=== PATIENT | female | born 1995 ===

== ENCOUNTER 2024-06-02 18:33 | Inpatient (IN) ==
[2024-06-02] MEDS ORDERED: LIDOCAINE 1% LOCAL 20 ML VIAL INFIL PRN (18:54)
--- NOTE | 2024-06-02 18:56 | History & Physical Report ---
Date of Service June 02, 2024 Assessment & Plan (1) Supervision of normal first : Plan: Admit to L&D. EFM/toco. Labs. OK for epidural if she desires. History of Present Illness Chief Complaint: labor Primary Care Provider: JHONNY Fontenot 28yo @ 39 2/, contractions all day. No leaking. No vaginal bleeding. + movement. Allergies Allergy/AdvReac Type Severity Reaction Status Date / Time No Known Allergies Allergy Verified 06/02/24 18:59 Home Medications Medication Instructions Recorded Confirmed Type vits no.124-ferrous fum 1 tab PO DAILY 06/02/24 06/02/24 History 27 mg iron-folic acid 800 mcg tablet ( Vitamin) Patient History Medical History Varicella vaccination No pertinent past medical history Surgical History H/O wisdom tooth extraction Family History Grandfather (Paternal) Myocardial infarction Grandmother (Maternal) Uterine cancer Grandfather (Paternal) Stroke Denies family history of Ovarian cancer Prostate cancer Diabetes Depression Kidney disease Breast cancer Colorectal cancer Cancer Social History (Updated 06/02/24 @ 02:22 by Ivy Rodriguez RN) Smoking Status: Never smoker Second Hand Exposure: No; Do You Dip or Chew Tobacco: No; Hx Alcohol Use: Yes Alcohol type: wine Alcohol Intake Frequency: Monthly or Less Hx Substance Use: No Preferred Language: Omani Communication Ability: Effective Visual Impairment: No Limitations Hearing Ability: Normal Membership Correspondent Required: No Beliefs That Will Affect Care: None marital status: marital status details: Cali Whitt (23) [phone] Current Living Situation: Spouse Current Living Situation Comment: lives with spouse, no pets current occupational status: unemployed current occupation: How many Children do You have: 0 Feels Safe at Home: Yes Childhood Exposure to Second-Hand Smoke: No Diet: regular caffeine: No during the past year weight has: remained stable Dental Care, Regularly: Yes Physical Activity Frequency: 1-2 Times per Week Seatbelt Use: always Sunscreen Use: Yes Assistive Devices: None Review of Systems All systems reviewed & are unremarkable except as noted in HPI & below Physical Exam Physical Exam: FHT Cat 1 [place] Q 2-3 min SVE 7-8/100/-1 Constitutional: WD/WN, vitals as above Respiratory: normal respiratory effort, lungs clear to auscultation no respiratory distress Cardiovascular: Rate/Rhythm: regular rate and regular rhythm Gastrointestinal (Abdomen): Inspection/Auscultation: abdomen normal to inspection Percussion/Palpation: abdomen soft; abdomen nontender Gravid. No s/s chorio or abruption. Skin: no rashes, warm and dry Psychiatric: A+Ox3, euthymic affect Coding Level of Care Code None Diagnoses Supervision of normal first Z34.00
[2024-06-02] MEDS: LACTATED RINGER'S 1,000 ML IV PRN (19:10)
[2024-06-02 19:30] LABS: Hematocrit (blood only) 35.6 % (37.0-47.0); Hemoglobin 11.8 g/dl (12.0-16.0); Mean Corpuscular Hemoglobin 27.4 pg (25.0-34.0); Mean Corpuscular Hgb Conc 33.1 g/dL (32.0-36.0); Mean Corpuscular Volume 82.6 fL (80.0-100.0); Mean Platelet Volume 10.2 fL (9.4-12.4); Platelet Count 387 K/uL (130-400); RDW Coefficient of Variation 13.4 % (11.5-14.5); RDW Standard Deviation 39.9 fL (36.4-46.3); Red Blood Count 4.31 M/uL (4.20-5.40); White Blood Count 18.12 K/ul (4.8-10.8)
[2024-06-02] MEDS ORDERED: ROPIVACAINE 0.5% PF 5 MG/ML 20 ML VIAL EPI PRN (20:39)
[2024-06-02] MEDS ORDERED: fentANYL 2 MCG/ML BUPIVacaine 0.125%-NSS 100ML BAG EPI PRN (20:39)
[2024-06-02] MEDS ORDERED: NALBUPHINE HCL INJ 10 MG/ML AMP IV PRN (20:39)
[2024-06-02] MEDS ORDERED: diphenhydrAMINE 50 MG/ML VIAL IV PRN (20:39)
[2024-06-02] MEDS ORDERED: NALOXONE HCL 1 MG in SODIUM CHLORIDE 0.9% 1,000 ML IV PRN (20:39)
[2024-06-02] MEDS ORDERED: fentaNYL citrate PF 100 MCG/2 ML VIAL EPI PRN (20:39)
[2024-06-02] MEDS ORDERED: SODIUM CHLORIDE 0.9% PF INJ 10 ML VIAL EPI PRN (20:39)
[2024-06-02] MEDS ORDERED: NALOXONE HCL 0.4 MG/1 ML VIAL/CARP IV PRN (20:39)
[2024-06-02] MEDS ORDERED: BUPIVACAINE 0.25% PF 30 ML VIAL EPI PRN (20:39)
[2024-06-02] MEDS ORDERED: ePHEDrine sulfate 50 MG/ML AMP IV PRN (20:39)
--- NOTE | 2024-06-02 20:39 | Anesthesiology Consultation ---
Date of Service June 02, 2024 Assessment & Plan Chart Review Chart Review: Acceptable Risk for Labor Epidural History Height/Weight Height: 5 ft 2 in Weight: 63.503 kg Allergies Allergy/AdvReac Type Severity Reaction Status Date / Time No Known Allergies Allergy Verified 06/02/24 18:59 Medications Home Medications Medication Instructions Recorded Confirmed Last Taken vits no.124-ferrous fum 1 tab PO DAILY 06/02/24 06/02/24 Unknown 27 mg iron-folic acid 800 mcg tablet ( Vitamin) Past Medical History Medical History Varicella vaccination No pertinent past medical history Past Family History Family History Grandfather (Paternal) Myocardial infarction Grandmother (Maternal) Uterine cancer Grandfather (Paternal) Stroke Denies family history of Ovarian cancer Prostate cancer Diabetes Depression Kidney disease Breast cancer Colorectal cancer Cancer Past Surgical History Surgical History H/O wisdom tooth extraction Social History Smoking Status: Never smoker Do You Dip or Chew Tobacco: No Hx Alcohol Use: Yes Alcohol type: wine Hx Substance Use: No Physical Exam Vital Signs Last Vital Signs Temp 36.8 C 06/02/24 19:00 Pulse 108 H 06/02/24 20:35 Resp 18 06/02/24 19:00 BP 134/90 06/02/24 18:55 Pulse Ox 98 06/02/24 20:35 Testing Laboratory Results 06/02/24 19:09
[2024-06-02] MEDS: fentANYL 2 MCG/ML BUPIVacaine 0.125%-NSS 100ML BAG ONE (21:02)
[2024-06-02] MEDS: LIDOCAINE 2% MPF LOCAL 5 ML VIAL EPI PRN (21:04)
[2024-06-02] MEDS: fentaNYL citrate PF 100 MCG/2 ML VIAL ONE (21:07)
[2024-06-02] MEDS: BUPIVACAINE 0.25% PF 30 ML VIAL ONE (21:07)
[2024-06-02] MEDS: ePHEDrine sulfate 50 MG/ML AMP ONE (21:07)
[2024-06-02] MEDS: LIDOCAINE 2%/EPINEPHRINE 1:200,000 20 ML PF ONE (21:08)
[2024-06-02] MEDS: SODIUM CHLORIDE 0.9% PF INJ 10 ML VIAL EPI STA (21:08)
[2024-06-02] MEDS: fentaNYL citrate PF 100 MCG/2 ML VIAL EPI STA (21:08)
[2024-06-02] MEDS: BUPIVACAINE 0.25% PF 30 ML VIAL EPI STA (21:08)
[2024-06-02] MEDS: SODIUM CHLORIDE 0.9% PF INJ 10 ML VIAL ONE (21:08)
[2024-06-02] MEDS: LIDOCAINE 2%/EPINEPHRINE 1:200,000 20 ML PF EPI STA (21:10)
--- NOTE | 2024-06-02 22:09 | Labor Progress Brief Note ---
Date of Service June 02, 2024 Subjective FHT 120s mod celso, +accels, +variable decelerations with immediate return to baseline. Ethel Q 2-4 SVE 0 to +1 station, 100%, anterior lip of cervix remains after trial push Will reposition for recovery, allow to labor down. Assessment & Plan Admission and Anticipated Discharge Date Admission Date: June 02, 2024 Results & Data Vital Signs (Past 12 Hours) Vital Signs Temp Pulse Resp BP Pulse Ox 06/02/24 22:05 119 H 99 06/02/24 22:00 105 H 99 06/02/24 21:57 104 H 126/89 06/02/24 21:55 105 H 99 06/02/24 21:53 109 H 167/83 H 06/02/24 21:50 114 H 99 06/02/24 21:45 107 H 98 06/02/24 21:43 102 H 116/65 06/02/24 21:40 101 H 99 06/02/24 21:35 98 H 98 06/02/24 21:30 105 H 98 06/02/24 21:25 101 H 98 06/02/24 21:23 102 H 120/70 06/02/24 21:20 105 H 122/69 98 06/02/24 21:15 101 H 98 06/02/24 21:14 103 H 127/73 06/02/24 21:10 103 H 97 06/02/24 21:08 106 H 127/74 06/02/24 21:06 103 H 123/75 06/02/24 21:05 36.9 C 115 H 18 97 06/02/24 21:04 107 H 118/66 06/02/24 21:02 105 H 18 129/74 06/02/24 21:00 106 H 06/02/24 21:00 101 H 115/65 96 06/02/24 20:58 106 H 18 123/74 06/02/24 20:56 111 H 125/79 06/02/24 20:55 93 06/02/24 20:55 102 H 06/02/24 20:55 105 H 98 06/02/24 20:50 127 H 98 06/02/24 20:45 128 H 97 06/02/24 20:40 120 H 98 06/02/24 20:35 108 H 98 06/02/24 20:30 111 H 98 06/02/24 20:25 122 H 98 06/02/24 20:24 111 H 91 06/02/24 19:00 36.8 C 18 06/02/24 18:55 106 H 134/90 Coding Level of Care Code None
[2024-06-02] MEDS: OXYTOCIN 30 UNITS/NSS 30 UNITS/500 ML BAG IV PRN (22:40)
--- NOTE | 2024-06-02 23:22 | Delivery Summary ---
Vaginal Delivery Summary Date of Service June 02, 2024 Vaginal Delivery Summary and 4th Degree LAC Vaginal Delivery Summary: Pre-delivery diagnoses: 28yo @ 39 2/7, spontaneous labor Post-delivery diagnoses: same Procedure: spontaneous vaginal delivery Surgeon: Dorothy Renae DO Complications: none Findings: Viable male . Apgars: 7/9. Weight pending, please see nursery records Estimated QBL: 93cc Description of delivery: The patient progressed to complete with epidural anesthesia. She then began to push. She spontaneously vaginally delivered a viable from the cephalic presentation. The head delivered in AMRIT position. The anterior shoulder delivered, followed by the posterior shoulder, followed by the body. Umbilical cord wrapped around the body. The baby was placed on mother's abdomen and a spontaneous cry was heard. Delayed cord clamping was employed, and the cord was doubly clamped and cut. A segment was retained for cord gases. Cord blood was obtained. The placenta was delivered spontaneously intact with a 3-vessel cord. The uterus and vagina were swept of clots and debris. IV pitocin was given. The uterus became firm. The cervix, vagina, and perineum were inspected. 4th degree perineal laceration was noted. Internal anal sphincter was identified and repaired with 3-0 Vicryl in a running stitch, with care to avoid sutures into the rectum. The edges of the external anal sphincter muscle were identified and grasped with Allis clamps. Using 4 [id number] sutures, this was reapproximated with 3-0 Chromic. The remaining repair was completed with 3-0 Vicryl in standard fashion. Rectal exa ms throughout the repair and at the conclusion of the repair revealed full closure of the tear and no sutures protruding into the rectum. Excellent hemostasis was observed. The mother and baby are recovering in stable and good condition in the room. Sponge, needle and instrument counts were correct x 2. Dorothy Renae DO [facility] Vaginal Delivery Charge Vaginal Delivery Codes: 93266 global code for the antepartum, delivery, and post- Delivery Type Details: and 4th Degree LAC
[2024-06-02] MEDS ORDERED: oxyCODONE/ACETAMINOPHEN 5mg/325mg TAB PO PRN (23:50)
[2024-06-02] MEDS ORDERED: OXYTOCIN 30 UNITS/NSS 30 UNITS/500 ML BAG IV PRN (23:50)
[2024-06-02] MEDS ORDERED: HYDROCORTISONE ACETATE 25 MG SUPP PR PRN (23:50)
[2024-06-03] MEDS: DIPHTHER/TETAN/PERTUS Vaccine (Tdap, Adol/Adult) 0.5mL IM ONE (00:14)
[2024-06-03] MEDS: IBUPROFEN 600 MG TAB PO PRN (00:14)
[2024-06-03] MEDS: BENZOCAINE 20% SPRY 85 APPLN/85 GM CAN EXT PRN (00:15)
[2024-06-03] MEDS: ACETAMINOPHEN 325 MG TAB PO PRN (02:04)
[2024-06-03 07:00] LABS: Hematocrit (blood only) 31.6 % (37.0-47.0); Hemoglobin 10.4 g/dl (12.0-16.0)
--- NOTE | 2024-06-03 07:15 | Anesthesia Procedure Note ---
Date of Service June 03, 2024 Anesthesia Post Epidural Note Vital Signs Vital Signs: Temp Pulse Resp BP Pulse Ox O2 Del Method 36.7 C 99 H 18 125/85 100 Room Air 06/03/24 05:40 06/03/24 05:40 06/03/24 05:40 06/03/24 05:40 06/03/24 05:40 06/03/24 05:40 Pain Intensity Abdomen: Pain Intensity: 5 Episiotomy/Laceration: Pain Intensity: 2 Head: Pain Intensity: 2 Notes Mental Status: alert / awake / arousable and participated in evaluation Nausea / Vomiting: adequately controlled Pain: adequately controlled Airway Patency, RR, SpO2: stable & adequate BP & HR: stable & adequate Hydration State: stable & adequate Neuraxial Anesthesia: was administered and sensory block is resolving Anesthetic Complications: no major complications apparent and Pt Satisfied with anesthetic care Epidural: Removed without complications and With tip intact
--- NOTE | 2024-06-03 07:28 | Obstetrical Progress Note ---
Date of Service June 03, 2024 Assessment & Plan (1) Vaginal delivery: Plan: 1st PP Day following with 4th Deg tear 28 years P1 at 39 week POG. Both mom and baby doing well. Continue care as per protocol. (2) Fourth degree perineal tear during delivery with problem: Plan: S/P Repair, No complication during procedure. Recovery well post as well. Plan to consider this event during planning second child . Admission and Anticipated Discharge Date Admission Date: June 02, 2024 Supervising Physician Co-Signing Physician Notes Resident Physician Supervision Note: I interviewed and examined the patient. Discussed with Dr. Bryant and agree with findings and plan as documented in the note. Any exceptions or clarifications are listed here: PPD#1 doing well, anticipate likely DC home tomorrow, continue care. Documented By: Dorothy Renae, DO Subjective 1st PP Day following with 4th Deg tear 28 years P1 at 39 week POG. C/o Numbness around genital, can't feel it. But peeing normally, able to walk, no numbness down in legs. Pain: Manageable in panikiller. Lochia: Moderate Diet: Regular Ob diet Gas: mild abdominal distension Peeing: Normal, no bladder distension Ambulation: Normally Review of Systems Review of Systems: No SOB, chest pain, leg pain No dizziness, headache, palpitation No Blurring of vision , fever Physical Exam Physical Exam: General: Alert and oriented. No acute distress. CVS: S1 S2+ No murmurs, regular rhythm. Respiratory: CTA bilaterally. No rhonchi, wheezes, or crackles. No increased work of breathing. Abdomen: Bowel sound + Mild gaseous distension noted. Uterus: Fundus firm and palpable few cm below the umbilicus. Lower extremities: No LE edema. No deep calf pain. Results & Data Vital Signs (Past 12 Hours) Vital Signs Temp Pulse Pulse Resp BP BP Pulse Ox 06/03/24 05:40 36.7 C 99 H 18 125/85 100 06/03/24 01:45 36.8 C 102 H 18 114/76 97 06/03/24 01:35 36.8 C 18 06/03/24 01:08 106 H 130/78 06/03/24 00:53 110 H 122/78 06/03/24 00:38 16 06/03/24 00:38 126 H 110/69 06/03/24 00:22 115 H 123/78 06/03/24 00:07 18 06/03/24 00:07 112 H 118/81 06/02/24 23:52 16 06/02/24 23:52 117 H 124/71 06/02/24 23:37 16 06/02/24 23:37 98 H 126/77 06/02/24 23:22 16 06/02/24 23:22 101 H 118/82 06/02/24 23:07 18 06/02/24 23:07 113 H 116/80 06/02/24 23:05 112 H 97 06/02/24 23:00 116 H 98 06/02/24 22:56 115 H 118/82 06/02/24 22:55 116 H 97 06/02/24 22:50 113 H 98 06/02/24 22:45 116 H 97 06/02/24 22:41 109 H 123/81 06/02/24 22:40 108 H 96 06/02/24 22:35 114 H 75 L 06/02/24 22:33 112 H 92 06/02/24 22:30 96 H 99 06/02/24 22:26 111 H 146/76 H 06/02/24 22:25 113 H 97 06/02/24 22:20 107 H 98 06/02/24 22:15 103 H 98 06/02/24 22:12 20 06/02/24 22:12 36.9 C 20 06/02/24 22:11 108 H 141/86 H 06/02/24 22:10 112 H 98 06/02/24 22:05 119 H 99 06/02/24 22:00 105 H 99 06/02/24 21:57 104 H 126/89 06/02/24 21:55 105 H 99 06/02/24 21:53 109 H 167/83 H 06/02/24 21:50 114 H 99 06/02/24 21:45 107 H 98 06/02/24 21:43 102 H 116/65 06/02/24 21:40 101 H 99 06/02/24 21:35 98 H 98 06/02/24 21:30 105 H 98 06/02/24 21:25 101 H 98 06/02/24 21:23 102 H 120/70 02/14/25 21:20 105 H 122/69 98 06/02/24 21:15 101 H 98 06/02/24 21:14 103 H 127/73 06/02/24 21:10 103 H 97 06/02/24 21:08 106 H 127/74 06/02/24 21:06 103 H 123/75 06/02/24 21:05 36.9 C 115 H 18 97 06/02/24 21:04 107 H 118/66 06/02/24 21:02 105 H 18 129/74 06/02/24 21:00 106 H 06/02/24 21:00 101 H 115/65 96 06/02/24 20:58 106 H 18 123/74 06/02/24 20:56 111 H 125/79 06/02/24 20:55 93 06/02/24 20:55 102 H 06/02/24 20:55 105 H 98 06/02/24 20:50 127 H 98 06/02/24 20:45 128 H 97 06/02/24 20:40 120 H 98 06/02/24 20:35 108 H 98 06/02/24 20:30 111 H 98 06/02/24 20:25 122 H 98 06/02/24 20:24 111 H 91 O2 Del Method 06/03/24 05:40 Room Air 06/03/24 01:45 Room Air 06/03/24 01:35 06/03/24 01:08 06/03/24 00:53 06/03/24 00:38 06/03/24 00:38 06/03/24 00:22 06/03/24 00:07 06/03/24 00:07 06/02/24 23:52 06/02/24 23:52 06/02/24 23:37 06/02/24 23:37 06/02/24 23:22 06/02/24 23:22 06/02/24 23:07 06/02/24 23:07 06/02/24 23:05 06/02/24 23:00 06/02/24 22:56 06/02/24 22:55 06/02/24 22:50 06/02/24 22:45 06/02/24 22:41 06/02/24 22:40 06/02/24 22:35 06/02/24 22:33 06/02/24 22:30 06/02/24 22:26 06/02/24 22:25 06/02/24 22:20 06/02/24 22:15 06/02/24 22:12 06/02/24 22:12 06/02/24 22:11 06/02/24 22:10 06/02/24 22:05 06/02/24 22:00 06/02/24 21:57 06/02/24 21:55 06/02/24 21:53 06/02/24 21:50 06/02/24 21:45 06/02/24 21:43 06/02/24 21:40 06/02/24 21:35 06/02/24 21:30 06/02/24 21:25 06/02/24 21:23 06/02/24 21:20 06/02/24 21:15 06/02/24 21:14 06/02/24 21:10 06/02/24 21:08 06/02/24 21:06 06/02/24 21:05 06/02/24 21:04 06/02/24 21:02 06/02/24 21:00 06/02/24 21:00 06/02/24 20:58 06/02/24 20:56 06/02/24 20:55 06/02/24 20:55 06/02/24 20:55 06/02/24 20:50 06/02/24 20:45 06/02/24 20:40 06/02/24 20:35 06/02/24 20:30 06/02/24 20:25 06/02/24 20:24 Resident Activity Tracking Resident Involvement: Resident Care Provided Care Provided: OB Delivery
[2024-06-03] MEDS: DOCUSATE SODIUM 100 MG CAP PO SCH (08:16)
[2024-06-03] MEDS: POLYETHYLENE (MIRALAX) 17 GM PACK PO SCH (08:16)
[2024-06-03] MEDS: PRENATAL VITAMIN 1 TAB PO SCH (08:16)
[2024-06-03] MEDS: bisacodyL 5 MG TABEC PO SCH (20:00)
[2024-06-04 00:17] VITALS: TEMP 98.2; O2SAT 97
[2024-06-04 07:33] VITALS: BP 117/76; PULSE 81; RESP 16
--- NOTE | 2024-06-04 09:11 | Obstetrical Progress Note ---
Date of Service June 04, 2024 Assessment & Plan (1) Fourth degree perineal tear during delivery with problem: (2) Vaginal delivery: Plan Plan d/c home today. Discussed care of bottom and first BM and how to make that easier for her. Discussed f/u in [address] Renae. Instructions given. Day #:: 2 Subjective Ambulation: ambulating normally Voiding: no voiding problems Passing Gas:: Yes Diet Tolerance:: regular diet Lochia:: Small Feeding Type:: breast feeding Notes her bottom is very sore. Physical Exam Constitutional WD/WN, vitals as above Cardiovascular Extremities: no calf tenderness and no edema Gastrointestinal (Abdomen) soft, gravid, ff/nt at u Psychiatric A+Ox3, euthymic affect Results & Data Vital Signs (Past 12 Hours) Vital Signs Temp Pulse Resp BP Pulse Ox O2 Del Method 06/04/24 07:13 36.8 C 81 16 117/76 97 Room Air 06/03/24 23:50 36.8 C 84 18 121/85 97 Room Air
== END 2024-06-04 15:20 | disposition home or self-care (01) | DRG 768 ==
LOC: OPB 18:33 → 4S1 18:45 → 4E2 06-03 01:52